=== PATIENT | male | born 1995 | race Caucasian/White ===

== ENCOUNTER 2017-04-16 18:49 | Emergency (ER) | payer SELFPAY ==
[~2017-04-16] VITALS: Ht 185.4 cm; Wt 100.0 kg
[2017-04-16 18:50] VITALS: BP 126/90; TEMP 98.4
[2017-04-16] MEDS ORDERED: CEPHALEXIN500 M1 PO (19:25)
[2017-04-16 21:13] VITALS: PULSE 97
== END 2017-04-16 21:22 | disposition home or self-care (01) ==
LOC: COL.ER 18:49
DX: S09.90XA Unspecified injury of head, initial encounter (principal); S01.81XA Laceration without foreign body of other part of head, initial encounter; S66.321A Laceration of extensor muscle, fascia and tendon of left index finger at wrist and hand level, initial encounter; S61.012A Laceration without foreign body of left thumb without damage to nail, initial encounter; S51.812A Laceration without foreign body of left forearm, initial encounter; S71.112A Laceration without foreign body, left thigh, initial encounter; F10.129 Alcohol abuse with intoxication, unspecified; Y04.0XXA Assault by unarmed brawl or fight, initial encounter
CPT/HCPCS: Q4021

== ENCOUNTER 2017-04-22 12:33 | Day surgery (SDC) | payer SELFPAY ==
[2017-04-22] VITALS (7 sets, daily range): BP systolic 106–137; BP diastolic 54–76; PULSE 64–88; TEMP 97.5–98.1
[~2017-04-22] VITALS: Ht 185.4 cm; Wt 97.9 kg
[~2017-04-22 12:33] MED LIST: CEPHALEXIN500 M1 PO
[2017-04-22] MEDS ORDERED: CEPHALEXIN500 M1 PO (12:54)
[2017-04-22] MEDS ORDERED: TYLENOL 500MG500 MG PO (12:55)
== END 2017-04-22 20:15 | disposition home or self-care (01) ==
LOC: SDCO 12:33 → JCC 18:00 → SDCO 20:15
DX: S56.422A Laceration of extensor muscle, fascia and tendon of left index finger at forearm level, initial encounter (principal); S56.322A Laceration of extensor or abductor muscles, fascia and tendons of left thumb at forearm level, initial encounter; F17.220 Nicotine dependence, chewing tobacco, uncomplicated
CPT/HCPCS: OP; J0690; J1100; J2250; J2405; J2704; J3010; J7120